=== PATIENT | female | born 1955 | race Caucasian/White ===

== ENCOUNTER 2016-11-02 09:46 | Outpatient (CLI) | payer OTHER ==
--- NOTE | 2016-11-02 11:31 | DIAGNOSTIC IMAGING REPORT ---
PROCEDURE: US ABDOMEN ULTRASOUND-COMPLETE INDICATION: ABDOMINAL PAIN TECHNIQUE: Christiansen scale and color Doppler sonographic images of the abdomen were obtained without comparison. COMPARISON: None. FINDINGS: The liver is normal in size, contour, and echotexture. No mass or intrahepatic biliary dilatation. The gallbladder is absent. No pericholecystic fluid or Garza sign. The extrahepatic common duct is normal measuring 6.6 mm The visualized pancreas is normal without ductal dilatation or peripancreatic fluid collection. The abdominal aorta is normal in its course and caliber. The retrohepatic inferior vena cava is patent. There is appropriate hepatopetal flow in the portal vein. The right kidney measures 10.1 cm in length. The left kidney measures 9.4 cm in length. Both kidneys demonstrate normal morphology and cortical thickness without hydronephrosis, cyst, solid mass, or shadowing calculus. Color Doppler imaging demonstrates normal blood flow in each kidney. The spleen is not seen There is no perihepatic or perisplenic ascites. IMPRESSION: 1. Normal abdominal ultrasound.
--- NOTE | 2016-11-02 11:40 | DIAGNOSTIC IMAGING REPORT ---
PROCEDURE: US COMPLETE PELVIC INDICATION: PELVIC PAIN TECHNIQUE: Transabdominal and endovaginal thorne scale and color Doppler sonographic images of the female pelvis were obtained. COMPARISON: None. FINDINGS: The patient refuses the transvaginal probe. Bladder will not fill fully secondary to incontinence. Technically limited study. TRANSABDOMINAL SCANS: Anteverted uterus measures 4.5 x 2.9 cm. The endometrium is not well seen. The ovaries were not identified. IMPRESSION: 1. Limited exam.
== END 2016-11-02 23:00 ==
LOC: LAB SRH 09:46 → US SRH 09:46
DX: R10.9 Unspecified abdominal pain (principal); R10.2 Pelvic and perineal pain
CPT/HCPCS: 90047; 90074; 92530; 95059

== ENCOUNTER 2016-11-18 08:09 | Outpatient (CLI) | payer OTHER | END 2016-11-18 23:00 | LOC: RT SRH 08:09 | DX: Z01.810 Encounter for preprocedural cardiovascular examination (principal); Z01.812 Encounter for preprocedural laboratory examination; N81.2 Incomplete uterovaginal prolapse | CPT/HCPCS: 90074; 95059 ==

== ENCOUNTER 2017-01-15 03:42 | Emergency (ER) | payer OTHER ==
--- NOTE | 2017-01-15 05:00 | ED NURSING NOTES ---
Clinical Report - Nurses [facility] [address] [place] [address] 01/15/2017 3:44 Patient: NGHIA NUNEZ TRIAGE Triage time 03:51 Jan 15 2017. Acuity: LEVEL 3. Chief Complaint: FALL OFF A CHAIR, onto a tile surface and landed on their head; lost balance (Fall off toilet). SEPSIS SCREEN: Sepsis Screen: negative. Negative (no infection suspected/documented). AMANDA COMA SCORE: Amanda Coma Scale: 15- eyes open spontaneously (4); best verbal response- oriented x 4 (5); best motor response- obeys commands (6). --04:03 Gabbi Burch 03:51 01/15/17. BP: 130/54. HR: 82. RR: 20. O2 saturation: 100% on room air. Temp: 98 F (oral). Pain level now: 5/10. --04:03 Gabbi Burch. Weight: 53.9 kg stated. Height/Length: 60 inches Per Patient. BMI: 23.2. --04:00 Gabbi Burch. Medications Adderall Oral. Baclofen Oral. Diclofenac Oral. Omeprazole Oral. Topiramate Oral. TraZODone HCl Oral. --03:57 Gabbi Burch Furosemide Oral. --03:58 Gabbi Burch Myrbetriq Oral. --03:58 Gabbi Burch Hydrocodone-Acetaminophen Oral. --03:59 Gabbi Burch. Medication/allergy information source: the patient. --04:03 Gabbi Burch. Allergies Feyaranol . Sulfa Antibiotics. --03:59 Gabbi Burch. History Arrived by private vehicle. Historian: patient. Accompanied by friend. Location of injuries: face, right buttock and right hip. This occurred (2 days). ( Patient reports she is normally a little unsteady on her feet and uses a cane. She states two nights ago she got up to use the restroom and she fell off the toilet. She states she hit her face, her head and her right hip and back. She states tonight she decided to come in because she is sore and not feeling better.). No loss of consciousness. No alteration in mental status. PAST MEDICAL HX: Immunizations: up-to-date. The patient is post-menopausal. SOCIAL HX: Former smoker, end date 1987. Never smoker. No alcohol use or drug use. No infectious disease exposure. ABUSE ASSESSMENT: No report of abuse. NUTRITIONAL RISK ASSESSMENT: The nutritional risk assessment revealed no deficiencies. FUNCTIONAL ASSESSMENT: Functional assessment: no impairments noted. LEARNING NEEDS ASSESSMENT: The learning needs assessment revealed no barriers. FALL RISK ASSESSMENT: Fall risk assessment completed. Risk factors identified include patient medications and impairment of mobility and sight. Fall interventions initiated. Patient placed on stretcher. Side rails up x2. Brakes on Bed in low position. Call light in reach of patient. Instructed not to get up without assistance. SKIN INTEGRITY ASSESSMENT: Skin integrity risk assessment completed. No skin integrity risk identified. --04:03 Gabbi Burch. PROBLEMS: TIA - Transient Ischemic Attack. Thoracic nerve impingement . Traumatic Brain Injury. ADHD - Attention Deficit Hyperactivity Disorder. PTSD. --04:00 Gabbi Burch Cervical Dysplasia. --04:03 Gabbi Burch. ADDITIONAL SURGERIES: Repair of rectal and vaginal prolapse . --04:00 Gabbi Burch Colposcopy. --04:03 Gabbi Burch. Interventions ID band on patient. To treatment room. --04:03 Gabbi Burch. PHYSICAL ASSESSMENT Ambulatory to room. GENERAL / NEURO / PSYCH: Alert. Oriented X 4. Appears in no acute distress. HEENT: Pupils equal, round and reactive to light. Head: tenderness and superficial 2.0 cm laceration localized to the forehead. RESPIRATORY: Respirations not labored. CVS: Normal heart rate and rhythm. Pulses within normal limits. GI / : Abdomen soft and nontender. EXTREMITIES: Right hip: tenderness. SKIN: Skin is warm and dry. BACK: Back: tenderness located in the right lumbar area and right thoracic area. --04:05 Gabbi Burch. NURSING PROGRESS NOTES Cold pack applied. Patient gowned. Warming measures: blanket applied. Reassurance given to the patient. Two patient identifiers checked. Call light placed in reach. Side rails up x 1. Bed placed in lowest position. Brakes of bed on. Patient ready for evaluation- chart flagged and ED physician notified. --04:05 MarcinOlimpia mensahh Patient transported to CT by stretcher with tech. (04:15 Jan 15 2017). --04:15 Marcin, Gabbi 04:41 01/15/2017 Hydrocodone-APAP (Hydrocodone-Acetaminophen) PO 5/325 mg Tablets 1 tab given. Allergies verified, confirmed 5 rights and sedative warning given to the patient and patient's motivational speaker. --04:41 MarcinOlimpia mensahh Patient returned from CT by stretcher with tech. (04:40 Jan 15 2017). --04:42 Gabbi Burch. DISPOSITION / DISCHARGE 05:29 01/15/17. Condition at departure: stable. The goals identified in the patient's plan of care were met. Fall risk assessment completed. Risk factors identified include patient history of fall and impairment of mobility; Patient assisted out to vehicle, patient ambulated without trouble. No learning barriers present. Discharge instructions provided and reviewed with the patient. Patient verbalized understanding. Written instructions provided in Serbian. ( Follow up with your PCP in three days. Apply ice to affected areas for twenty minutes at a time. Return if symptoms worsen. Use caution when ambulating at night and be sure to have pathways clear as well as night lights.). The patient was discharged by the physician. She was discharged home and accompanied by motivational speaker. She left the Emergency Department ambulatory and via private vehicle. Backer Up driving. --05:29 Gabbi Burch 05:28 01/15/17. BP: 100/60. HR: 76. RR: 20. O2 saturation: 98% on room air. Temp: 98.4 F (oral). Pain level now: 510. --05:29 Gabbi Burch. Locked/Released at 01/16/2017 0:01 by Gabbi Burch,
--- NOTE | 2017-01-15 05:00 | ED ORDER SUMMARY ---
..... Patient: NGHIA NUNEZ OrderSheet [facility] VisitID: [id number] [address] [place] [address] 61y, F Registration Date/Time: 01/15/2017 ORDER SHEET Weight: 53.9 kg (stated) Allergies: Feyaranol , Sulfa Antibiotics GENERAL ORDERS: Foot 3V Left Urgent (04:11 01/15/2017 Payton Miranda) (Ack 4:19 AMcQuoid ER Tech1) (4:39 RFay) Hip 2V Right w AP Pelvis Urgent (04:11 01/15/2017 Payton Miranda) (Ack 4:19 AMcQuoid ER Tech1) (4:39 RFay) CT Head wo Cont Urgent (04:11 01/15/2017 Payton Miranda) (Ack 4:19 AMcQuoid ER Tech1) (4:39 RFay) MEDICATION ORDERS: Hydrocodone-APAP PO 5/325 mg (NOW, HIGH ALERT MEDICATION) (04:12 01/15/2017 Payton Miranda) (Ack 4:15 HSoule) (4:41 HSoule) IV FLUIDS: ORDER SHEET NOTES: [Electronically signed by Gabbi Burch (00:01 01/16/2017)] [Electronically signed by Mejia Mckinnon Dr. (04:31 01/22/2017)] [Electronically locked/signed by Gabbi Burch (00:01 01/16/2017)]
--- NOTE | 2017-01-15 05:00 | ED NURSING NOTES ---
Clinical Report - Nurses [facility] [address] [place] [address] 01/15/2017 3:44 Patient: NGHIA NUNEZ TRIAGE Triage time 03:51 Jan 15 2017. Acuity: LEVEL 3. Chief Complaint: FALL OFF A CHAIR, onto a tile surface and landed on their head; lost balance (Fall off toilet). SEPSIS SCREEN: Sepsis Screen: negative. Negative (no infection suspected/documented). AMANDA COMA SCORE: Amanda Coma Scale: 15- eyes open spontaneously (4); best verbal response- oriented x 4 (5); best motor response- obeys commands (6). --04:03 Gabbi Burch 03:51 01/15/17. BP: 130/54. HR: 82. RR: 20. O2 saturation: 100% on room air. Temp: 98 F (oral). Pain level now: 5/10. --04:03 Gabbi Burch. Weight: 53.9 kg stated. Height/Length: 60 inches Per Patient. BMI: 23.2. --04:00 Gabbi Burch. Medications Adderall Oral. Baclofen Oral. Diclofenac Oral. Omeprazole Oral. Topiramate Oral. TraZODone HCl Oral. --03:57 Gabbi Burch Furosemide Oral. --03:58 Gabbi Burch Myrbetriq Oral. --03:58 Gabbi Burch Hydrocodone-Acetaminophen Oral. --03:59 Gabbi Burch. Medication/allergy information source: the patient. --04:03 Gabbi Burch. Allergies Feyaranol . Sulfa Antibiotics. --03:59 Gabbi Burch. History Arrived by private vehicle. Historian: patient. Accompanied by friend. Location of injuries: face, right buttock and right hip. This occurred (2 days). ( Patient reports she is normally a little unsteady on her feet and uses a cane. She states two nights ago she got up to use the restroom and she fell off the toilet. She states she hit her face, her head and her right hip and back. She states tonight she decided to come in because she is sore and not feeling better.). No loss of consciousness. No alteration in mental status. PAST MEDICAL HX: Immunizations: up-to-date. The patient is post-menopausal. SOCIAL HX: Former smoker, end date 1987. Never smoker. No alcohol use or drug use. No infectious disease exposure. ABUSE ASSESSMENT: No report of abuse. NUTRITIONAL RISK ASSESSMENT: The nutritional risk assessment revealed no deficiencies. FUNCTIONAL ASSESSMENT: Functional assessment: no impairments noted. LEARNING NEEDS ASSESSMENT: The learning needs assessment revealed no barriers. FALL RISK ASSESSMENT: Fall risk assessment completed. Risk factors identified include patient medications and impairment of mobility and sight. Fall interventions initiated. Patient placed on stretcher. Side rails up x2. Brakes on Bed in low position. Call light in reach of patient. Instructed not to get up without assistance. SKIN INTEGRITY ASSESSMENT: Skin integrity risk assessment completed. No skin integrity risk identified. --04:03 Gabbi Burch. PROBLEMS: TIA - Transient Ischemic Attack. Thoracic nerve impingement . Traumatic Brain Injury. ADHD - Attention Deficit Hyperactivity Disorder. PTSD. --04:00 Gabbi Burch Cervical Dysplasia. --04:03 Gabbi Burch. ADDITIONAL SURGERIES: Repair of rectal and vaginal prolapse . --04:00 Gabbi Burch Colposcopy. --04:03 Gabbi Burch. Interventions ID band on patient. To treatment room. --04:03 Gabbi Burch. PHYSICAL ASSESSMENT Ambulatory to room. GENERAL / NEURO / PSYCH: Alert. Oriented X 4. Appears in no acute distress. HEENT: Pupils equal, round and reactive to light. Head: tenderness and superficial 2.0 cm laceration localized to the forehead. RESPIRATORY: Respirations not labored. CVS: Normal heart rate and rhythm. Pulses within normal limits. GI / : Abdomen soft and nontender. EXTREMITIES: Right hip: tenderness. SKIN: Skin is warm and dry. BACK: Back: tenderness located in the right lumbar area and right thoracic area. --04:05 Gabbi Burch. NURSING PROGRESS NOTES Cold pack applied. Patient gowned. Warming measures: blanket applied. Reassurance given to the patient. Two patient identifiers checked. Call light placed in reach. Side rails up x 1. Bed placed in lowest position. Brakes of bed on. Patient ready for evaluation- chart flagged and ED physician notified. --04:05 MarcinOlimpia mensahh Patient transported to CT by stretcher with tech. (04:15 Jan 15 2017). --04:15 Marcin, Gabbi 04:41 01/15/2017 Hydrocodone-APAP (Hydrocodone-Acetaminophen) PO 5/325 mg Tablets 1 tab given. Allergies verified, confirmed 5 rights and sedative warning given to the patient and patient's spray rig operator. --04:41 MarcinOlimpia mensahh Patient returned from CT by stretcher with tech. (04:40 Jan 15 2017). --04:42 Gabbi Burch. DISPOSITION / DISCHARGE 05:29 01/15/17. Condition at departure: stable. The goals identified in the patient's plan of care were met. Fall risk assessment completed. Risk factors identified include patient history of fall and impairment of mobility; Patient assisted out to vehicle, patient ambulated without trouble. No learning barriers present. Discharge instructions provided and reviewed with the patient. Patient verbalized understanding. Written instructions provided in Tajik. ( Follow up with your PCP in three days. Apply ice to affected areas for twenty minutes at a time. Return if symptoms worsen. Use caution when ambulating at night and be sure to have pathways clear as well as night lights.). The patient was discharged by the physician. She was discharged home and accompanied by spray rig operator. She left the Emergency Department ambulatory and via private vehicle. Designer driving. --05:29 Gabbi Burch 05:28 01/15/17. BP: 100/60. HR: 76. RR: 20. O2 saturation: 98% on room air. Temp: 98.4 F (oral). Pain level now: 510. --05:29 Gabbi Burch. Locked/Released at 01/16/2017 0:01 by Gabbi Burch,
--- NOTE | 2017-01-15 05:00 | ED ORDER SUMMARY ---
..... Patient: NGHIA NUNEZ OrderSheet [facility] VisitID: [id number] [address] [place] [address] 61y, F Registration Date/Time: 01/15/2017 ORDER SHEET Weight: 53.9 kg (stated) Allergies: Feyaranol , Sulfa Antibiotics GENERAL ORDERS: Foot 3V Left Urgent (04:11 01/15/2017 Payton Miranda) (Ack 4:19 AMcQuoid ER Tech1) (4:39 RFay) Hip 2V Right w AP Pelvis Urgent (04:11 01/15/2017 Payton Miranda) (Ack 4:19 AMcQuoid ER Tech1) (4:39 RFay) CT Head wo Cont Urgent (04:11 01/15/2017 Payton Miranda) (Ack 4:19 AMcQuoid ER Tech1) (4:39 RFay) MEDICATION ORDERS: Hydrocodone-APAP PO 5/325 mg (NOW, HIGH ALERT MEDICATION) (04:12 01/15/2017 Payton Miranda) (Ack 4:15 HSoule) (4:41 HSoule) IV FLUIDS: ORDER SHEET NOTES: [Electronically signed by Gabbi Burch (00:01 01/16/2017)] [Electronically signed by Mejia Mckinnon Dr. (04:31 01/22/2017)] [Electronically locked/signed by Gabbi Burch (00:01 01/16/2017)]
--- NOTE | 2017-01-15 05:00 | ED CLINICAL REPORT ---
Clinical Report - Physicians/Mid Levels [facility] [address] [place] [address] 01/15/2017 3:44 Patient: NGHIA NUNEZ Time Seen: 0407. Arrived- By private vehicle. Historian- patient. HISTORY OF PRESENT ILLNESS Location of injuries- head, right hip and left foot. Chief Complaint: FALL. The injury occurred two days ago. Fell (from toiled.). No fainting episodes. Occurred at home. The patient complains of moderate pain. The patient sustained a blow to the head. No neck pain or seizure. Not dazed. (states she fell asleep while on the toilet. states she does not recall the rest of what happened. states she did not come in immediately because she thought it would get better.). REVIEW OF SYSTEMS All systems otherwise negative, except as recorded above. PAST HISTORY See nurses notes. Tetanus immunization status is up-to-date. Medications: Hydrocodone-Acetaminophen Oral. Myrbetriq Oral. Furosemide Oral. Adderall Oral. Baclofen Oral. Diclofenac Oral. Omeprazole Oral. Topiramate Oral. TraZODone HCl Oral. Allergies: Feyaranol . Sulfa Antibiotics. SOCIAL HISTORY Never smoker. No alcohol use or drug use. No recent travel. Is a local resident. ADDITIONAL NOTES The nursing notes have been reviewed. PHYSICAL EXAM Vital Signs: 01/15/2017 03:51 BP: 130/54. HR: 82. RR: 20. O2 saturation: 100%. Temp: 98 F. Pain level now: 5/10. Blood pressure normal. Oxygen saturation normal. Appearance: Alert. Oriented X3. No acute distress. Head: Baxter's sign. Raccoon eyes. Head non-tender. No swelling of head. Eyes: Pupils equal, round and reactive to light. Pupillary exam: Right pupil 4mm, round and reactive to light directly and consensually and with accommodation. Left pupil: 4mm, round and reactive to light directly and consensually and with accommodation. EOM intact. ENT: No dental injury. No hemotympanum. Pharynx normal. No malocclusion. Neck: No decreased ROM or muscle spasm in the neck. No pain with movement of head/neck. Painless ROM. Non-tender. No vertebral tenderness. CVS: Heart sounds normal. Pulses normal. Respiratory: Breath sounds normal. Chest nontender. Abdomen: No visible injury. Soft and nontender. Bowel sounds normal. No organomegaly. No mass. Femoral pulses equal. Back: No tenderness. ROM normal. Skin: Skin intact. Skin warm and dry. Normal skin color. Normal skin turgor. Extremities: (no pain with log roll of the lower extremity. mild pain with passive rom of the right hip. no crepitus. no kami abnormalities. neurovasc intact. left foot without out overlying skin changes, kami abnormalities, crepitus, or lacerations. neurovasc intact.). Neuro: Amanda Coma Scale: 15- eyes open spontaneously (4); best verbal response- oriented x 3 (5); best motor response- obeys commands (6). Oriented X 3. Cranial nerve deficit present. No motor deficit. No sensory deficit. LABS, X-RAYS, AND EKG Rt Hip X-ray: No fracture. Normal alignment. No bony lesion. Views: 2 view hip series. Technique: good. The X-rays were independently viewed by me and interpreted contemporaneously by me. Prior films were not available for comparison. Lt Foot X-ray: No fracture. Normal alignment. No bony lesion. Views: 3 view foot series, AP, lateral and oblique. The X-rays were independently viewed by me and interpreted contemporaneously by me. Prior films were not available for comparison. CT Head: (PROCEDURE: CT HEAD WITHOUT CONTRAST INDICATION: TRAUMA/INJURY TECHNIQUE: Noncontrast axial images with sagittal and coronal reformations. Preliminary report provided by Roosevelt Claire MD ([facility]) COMPARISON: None. FINDINGS: There is evidence of mild old small vessel disease. Brain and ventricles are otherwise normal. No evidence of an acute process or hemorrhage. Sinuses and mastoids are normal. IMPRESSION: 1. Findings suggest minor old small vessel changes. 2. Otherwise negative head CT. No evidence of acute process.). PROGRESS AND PROCEDURES Course of Care: The patient is a pleasant 61-year-old female presenting for evaluation of fall from a sitting position. Because of the patient's circumstances, CT scan of the head is warranted. Patient with amnesia of the event. Patient will also be evaluated with radiographs of the right hip and the left foot because of her reports of discomfort there. No neurovascular abnormality noted. Neurological exam is otherwise unremarkable. Patient is agreeable to the treatment and plan. Pain medication has been offered. The patient's workup was remarkable for the findings above. No acute osseous abdomen maladies noted on the patient's. Because of the patient's overall unremarkable workup, do not feel patient needs to be admitted to the hospital or require further emergency department evaluation. Patient has been resting in bed comfortably while here in the emergency department. Repeat examination continues to be benign. I had discussion with the patient in regards to her workup here in the emergency department including diagnosis, home care, follow-up, and return precautions. All questions have been answered. The patient expressed understanding of these instructions and was agreeable to them. Disposition: Discharged. Condition: good. CLINICAL IMPRESSION Concussion. Unknown whether a loss of consciousness occurred. Memory loss. Acute pain in the right lower extremity (hip) and left lower extremity (foot) .12 lead EKG performed. INSTRUCTIONS Warnings: GENERAL WARNINGS: Return or contact your physician immediately if your condition worsens or changes unexpectedly, if not improving as expected, or if other problems arise. SPECIFICALLY, return if you develop weakness, numbness, tingling, pain or incontinence. Your Current Medications: CONTINUE TAKING THE FOLLOWING MEDICATIONS: Adderall Oral. Baclofen Oral. Diclofenac Oral. Furosemide Oral. Hydrocodone-Acetaminophen Oral. Myrbetriq Oral. Omeprazole Oral. Topiramate Oral. TraZODone HCl Oral. Follow-up: Return to the emergency department as needed. Follow up with your doctor in three days. Reason for referral: recheck today's concerns. Summary of care provided to patient via paper. Screening today revealed the patient's blood pressure to be in the normal range. The patient should follow up with a primary care provider for blood pressure management. Understanding of the discharge instructions verbalized by patient. (Electronically signed by Mejia Mckinnon Dr. 01/22/2017 4:31)
--- NOTE | 2017-01-15 05:30 | DIAGNOSTIC IMAGING REPORT ---
PROCEDURE: XR HIP 2VW W W/O AP PELVIS-RT INDICATION: TRAUMA/INJURY TECHNIQUE: AP view of the pelvis and hips with lateral view of the right hip. COMPARISON: None. FINDINGS: RIGHT HIP: Osseous structures and joint spaces are normal. PELVIS: Osseous pelvis is normal. IMPRESSION: 1. Negative pelvis and right hip.
--- NOTE | 2017-01-15 05:31 | DIAGNOSTIC IMAGING REPORT ---
PROCEDURE: XR FOOT 3 VIEWS - LEFT INDICATION: TRAUMA/INJURY TECHNIQUE: Three views. COMPARISON: None. FINDINGS: Osseous structures and joint spaces are normal. IMPRESSION: 1. Normal left foot.
--- NOTE | 2017-01-15 05:37 | DIAGNOSTIC IMAGING REPORT ---
PROCEDURE: CT HEAD WITHOUT CONTRAST INDICATION: TRAUMA/INJURY TECHNIQUE: Noncontrast axial images with sagittal and coronal reformations. Preliminary report provided by Roosevelt Claire MD ([facility]) COMPARISON: None. FINDINGS: There is evidence of mild old small vessel disease. Brain and ventricles are otherwise normal. No evidence of an acute process or hemorrhage. Sinuses and mastoids are normal. IMPRESSION: 1. Findings suggest minor old small vessel changes. 2. Otherwise negative head CT. No evidence of acute process. 3. Preliminary report provided to Dr. Mckinnon. All CT scans at this facility use dose modulation, iterative reconstruction, and/or weight-based dosing when appropriate to reduce radiation dose to as low as reasonably achievable.
--- NOTE | 2017-01-15 05:37 | DIAGNOSTIC IMAGING REPORT ---
PROCEDURE: CT HEAD WITHOUT CONTRAST INDICATION: TRAUMA/INJURY TECHNIQUE: Noncontrast axial images with sagittal and coronal reformations. Preliminary report provided by Roosevelt Claire MD ([facility]) COMPARISON: None. FINDINGS: There is evidence of mild old small vessel disease. Brain and ventricles are otherwise normal. No evidence of an acute process or hemorrhage. Sinuses and mastoids are normal. IMPRESSION: 1. Findings suggest minor old small vessel changes. 2. Otherwise negative head CT. No evidence of acute process. 3. Preliminary report provided to Dr. Mckinnon. All CT scans at this facility use dose modulation, iterative reconstruction, and/or weight-based dosing when appropriate to reduce radiation dose to as low as reasonably achievable.
--- NOTE | 2017-01-22 04:31 | ED MAR SUMMARY ---
..... Medication Administration Record [facility] [address] [place] [address] Patient: NGHIA NUNEZ Visit ID: [id number] 61y, F Weight: 53.9 kg Height/Length: 60 in BMI: 23.2 ALLERGIES: Feyaranol , Sulfa Antibiotics Given 04:41 01/15/2017 Gabbi Burch, Medication Administered: HYDROCODONE-APAP [PO] (HYDROCODONE-ACETAMINOPHEN), Dose: 1 tab 5/325 mg Tablets PO. Medication Ordered: Hydrocodone-APAP PO 5/325 mg (NOW, HIGH ALERT MEDICATION).
--- NOTE | 2017-01-22 04:31 | ED MED RECONCILIATION SUMMARY ---
Patient: NGHIA NUNEZ Medication Reconciliation Report [facility] VisitID: [id number] [address] [place] [address] 61y, F Registration Date/Time: 01/15/2017 Weight: 53.9 kg Height/Length: 60 in. BMI: 23.2 ALLERGIES: Feyaranol , Sulfa Antibiotics The patient's Home Medications are listed below: CONTINUE TAKING THE FOLLOWING MEDICATIONS: Adderall Oral Baclofen Oral Diclofenac Oral Furosemide Oral Hydrocodone-Acetaminophen Oral Myrbetriq Oral Omeprazole Oral Topiramate Oral TraZODone HCl Oral The source(s) of the original Home Medication information: patient The following Medications were given to the patient in the Emergency Department: Hydrocodone-APAP [PO] PO 1 tab, administered: 01/15/2017 4:41:00 AM The following Medications were prescribed to the patient: None.
--- NOTE | 2017-01-22 04:31 | ED MAR SUMMARY ---
..... Medication Administration Record [facility] [address] [place] [address] Patient: NGHIA NUNEZ Visit ID: [id number] 61y, F Weight: 53.9 kg Height/Length: 60 in BMI: 23.2 ALLERGIES: Feyaranol , Sulfa Antibiotics Given 04:41 01/15/2017 Gabbi Burch, Medication Administered: HYDROCODONE-APAP [PO] (HYDROCODONE-ACETAMINOPHEN), Dose: 1 tab 5/325 mg Tablets PO. Medication Ordered: Hydrocodone-APAP PO 5/325 mg (NOW, HIGH ALERT MEDICATION).
--- NOTE | 2017-01-22 04:31 | ED MED RECONCILIATION SUMMARY ---
Patient: NGHIA NUNEZ Medication Reconciliation Report [facility] VisitID: [id number] [address] [place] [address] 61y, F Registration Date/Time: 01/15/2017 Weight: 53.9 kg Height/Length: 60 in. BMI: 23.2 ALLERGIES: Feyaranol , Sulfa Antibiotics The patient's Home Medications are listed below: CONTINUE TAKING THE FOLLOWING MEDICATIONS: Adderall Oral Baclofen Oral Diclofenac Oral Furosemide Oral Hydrocodone-Acetaminophen Oral Myrbetriq Oral Omeprazole Oral Topiramate Oral TraZODone HCl Oral The source(s) of the original Home Medication information: patient The following Medications were given to the patient in the Emergency Department: Hydrocodone-APAP [PO] PO 1 tab, administered: 01/15/2017 4:41:00 AM The following Medications were prescribed to the patient: None.
--- NOTE | 2017-01-22 04:31 | ED DISCHARGE INSTRUCTIONS ---
Patient: NGHIA NUNEZ General Instructions [facility] VisitID: [id number] [address] [place] [address] 61y, F Registration Date/Time: 01/15/2017 Concussion. Unknown whether a loss of consciousness occurred. Memory loss. Acute pain in the right lower extremity (hip) and left lower extremity (foot) .12 lead EKG performed. INSTRUCTIONS Warnings: GENERAL WARNINGS: Return or contact your physician immediately if your condition worsens or changes unexpectedly, if not improving as expected, or if other problems arise. SPECIFICALLY, return if you develop weakness, numbness, tingling, pain or incontinence. Your Current Medications: CONTINUE TAKING THE FOLLOWING MEDICATIONS: Adderall Oral. Baclofen Oral. Diclofenac Oral. Furosemide Oral. Hydrocodone-Acetaminophen Oral. Myrbetriq Oral. Omeprazole Oral. Topiramate Oral. TraZODone HCl Oral. Follow-up: Return to the emergency department as needed. Follow up with your doctor in three days. Reason for referral: recheck today's concerns. Summary of care provided to patient via paper. Screening today revealed the patient's blood pressure to be in the normal range. The patient should follow up with a primary care provider for blood pressure management. Understanding of the discharge instructions verbalized by patient. ADDITIONAL INFORMATION Pain, Uncertain Cause [Acute] Pain is the bodys way of calling attention to a problem. Pain can be caused by many conditions - some minor, some serious. In your case, we were not able to find the exact cause for your pain. However, at this time there is no sign of any serious or life-threatening illness causing your pain. Sometimes more tests will be needed to determine the cause. Other times, just allowing more time to pass will either make it clear what the problem is, or the pain will go away by itself. Home Care: You may use acetaminophen (Tylenol) or ibuprofen (Motrin, Advil) to control pain, unless another medicine was prescribed. [NOTE: If you have chronic liver or kidney disease or ever had a stomach ulcer or GI bleeding, talk with your doctor before using these medicines.] Follow Up with your doctor or as advised by our staff. Get Prompt Medical Attention if any of the following occur: Changes in the pattern of your pain Appearance of new symptoms Fever of 100.4F (38C) or higher, or as directed by your healthcare provider Concussion (No Wake-Up) A concussion happens when you hit your head with enough force to shake up the brain. This may cause you to lose consciousness be "knocked out" - but not always. Depending on how hard you hit your head, it will take from a few hours up to a few days to get better. Sometimes symptoms may last a few months or longer. This is called post-concussion syndrome. At first, you may have a headache, nausea, vomiting, or dizziness. You may also have problems concentrating or remembering things. This is normal. Symptoms should get better as the hours and days go by. Symptoms that get worse could be a sign of a more serious injury. This might be a bruise or bleeding in the brain. Thats why its important to watch for the warning signs listed below. Home care Follow these tips to help care for yourself at home: During the next day (24 hours) someone must stay with you to check for the signs below. If your face or scalp swells, apply an ice pack for 20 minutes every 1 to 2 hours. Do this until the swelling starts to go down. You can make an ice pack by putting ice cubes in a plastic bag and wrapping the bag in a towel. for 20 minutes every 1-2 hours until the swelling starts to go down. You may use acetaminophen to control pain, unless another pain medicine was prescribed. If you have chronic liver or kidney disease, talk with your doctor before using these medicines. Also talk with your doctor if you ever had a stomach ulcer or GI bleeding. For the next 24 hours: Dont drink alcohol or take sedatives or medicines that make you sleepy. Dont drive or operate machinery. Avoid doing anything strenuous. Dont lift or strain. Dont return to sports or any activity that could cause you to hit your head until all symptoms are gone and you have been cleared by your doctor. A second head injury before fully recovering from the first one can lead to serious brain injury. Follow-up care Follow up with your doctor in 1 week, or as directed. Note: A radiologist will review any X-rays or CT scans that were taken. You will be told of any new findings that may affect your care. When to seek medical care Get prompt medical attention if any of these occur: Repeated vomiting Headache or dizziness that is severe or gets worse Unusual drowsiness, or unable to wake up as usual Confusion or change in behavior or speech, or memory loss Blurred vision Convulsion (seizure) Swelling on the scalp or face that gets worse Redness, warmth, or pus from the swollen area Fluid draining from or bleeding from the nose or ears You have been given the following additional information: Pain, Uncertain Cause (Acute) Concussion, No Wake-Up (Electronically signed by Mejia Mckinnon Dr. 01/22/2017 4:31)
== END 2017-01-15 05:15 | disposition home or self-care (01) ==
LOC: ED SRH 03:42
DX: S06.0X0A Concussion without loss of consciousness, initial encounter (principal); W18.12XA Fall from or off toilet with subsequent striking against object, initial encounter; Y93.9 Activity, unspecified; Y92.012 Bathroom of single-family (private) house as the place of occurrence of the external cause; Y99.9 Unspecified external cause status; M25.551 Pain in right hip; M79.672 Pain in left foot; R41.3 Other amnesia; Z86.73 Personal history of transient ischemic attack (TIA), and cerebral infarction without residual deficits; Z79.899 Other long term (current) drug therapy

== ENCOUNTER 2017-01-19 09:36 | Outpatient (CLI) | payer OTHER ==
--- NOTE | 2017-01-19 10:59 | DIAGNOSTIC IMAGING REPORT ---
PROCEDURE: US COMPLETE PELVIC INDICATION: PELVIC PAIN TECHNIQUE: Transabdominal and endovaginal thorne scale and color Doppler sonographic images of the female pelvis were obtained. COMPARISON: Abdominal ultrasound 01/19/2017 FINDINGS: TRANSABDOMINAL SCANS: Status post hysterectomy. Ovaries not visualized. The visible portion of the urinary bladder is normal. No significant free pelvic fluid. The study was limited due to excessive bowel gas. IMPRESSION: 1. Negative pelvic ultrasound.
--- NOTE | 2017-01-19 11:37 | DIAGNOSTIC IMAGING REPORT ---
PROCEDURE: US ABDOMEN ULTRASOUND-COMPLETE INDICATION: ABDOMINAL PAIN TECHNIQUE: Christiansen scale and color Doppler sonographic images of the abdomen were obtained without comparison. COMPARISON: Abdominal ultrasound 11/02/2016 FINDINGS: The liver is normal in size, contour, and echotexture. No mass or intrahepatic biliary dilatation. The gallbladder is surgically absent. No pericholecystic fluid or Garza sign. The extrahepatic common duct is normal measuring 5.9 mm The visualized pancreas is normal without ductal dilatation or peripancreatic fluid collection. The abdominal aorta is normal in its course and caliber. The retrohepatic inferior vena cava is patent. There is appropriate hepatopetal flow in the portal vein. The right kidney measures 10 cm in length. The left kidney measures 10 cm in length. Both kidneys demonstrate normal morphology and cortical thickness without hydronephrosis, cyst, solid mass, or shadowing calculus. Color Doppler imaging demonstrates normal blood flow in each kidney. The spleen is not well seen due to bowel gas There is no perihepatic or perisplenic ascites. IMPRESSION: 1. Normal abdominal ultrasound.
== END 2017-01-19 23:00 ==
LOC: US SRH 09:36
DX: R10.9 Unspecified abdominal pain (principal); R10.2 Pelvic and perineal pain; R53.83 Other fatigue
CPT/HCPCS: 90074; 90100; 95059

== ENCOUNTER 2017-02-08 16:45 | Outpatient (CLI) | payer OTHER ==
--- NOTE | 2017-02-08 17:54 | DIAGNOSTIC IMAGING REPORT ---
PROCEDURE: XR CHEST 2 VIEW INDICATION: COUGHING BLOOD TECHNIQUE: PA and lateral views. COMPARISON: None. FINDINGS: Lungs are clear. Heart and mediastinum are normal. Thorax is normal. IMPRESSION: 1. Negative chest.
== END 2017-02-08 23:00 ==
LOC: XR SRH 16:45
DX: R04.2 Hemoptysis (principal)